=== PATIENT | female | born 1990 | race Caucasian/White ===

== ENCOUNTER 2017-12-19 02:00 | Inpatient (IN) | payer MEDICAID ==
[2017-12-19] MEDS ORDERED: Sodium Chloride 0.9% 2.5 ML Syringe FLUSH PRN (03:44)
[2017-12-19] MEDS ORDERED: Lidocaine 1% 50 ML MDV INJECT PRN (03:44)
[2017-12-19] MEDS ORDERED: Carboprost Tromethamine 250 MCG/1 ML Amp IM PRN (03:44)
[2017-12-19] MEDS ORDERED: Butorphanol 1 MG/ML SDV IVPUSH PRN (03:44)
[2017-12-19] MEDS ORDERED: Misoprostol 200 MCG Tab PO PRN (03:44)
[2017-12-19] MEDS ORDERED: Nalbuphine 10 MG/1 ML Vial IVPUSH PRN (03:44)
[2017-12-19] MEDS ORDERED: Water For Irrigation,Sterile 1,000 ML Container IRR PRN (03:44)
[2017-12-19] MEDS ORDERED: Methylergonovine 0.2 MG/1 ML Amp IM PRN (03:44)
[2017-12-19] MEDS ORDERED: Sodium Chloride 0.9% 10 ML Syringe FLUSH PRN (03:44)
[2017-12-19] MEDS ORDERED: Lactated Ringers 1,000 ML IV SCH (03:45)
[2017-12-19] MEDS ORDERED: Oxytocin/0.9 % Sodium Chloride 30 UNIT/500 ML BAG IV SCH (03:45)
[2017-12-19] MEDS ORDERED: Acetaminophen 500 MG Tab ONE (04:33)
[2017-12-19] MEDS ORDERED: Ibuprofen 800 MG Tab ONE (04:33)
[2017-12-19] MEDS: Ibuprofen 800 MG Tab PO PRN ×3 (04:40→16:43)
[2017-12-19] MEDS: Acetaminophen 500 MG Tab PO PRN ×2 (04:40→19:39)
[2017-12-19] MEDS ORDERED: Bisacodyl 10 MG Supp RECTAL PRN (04:45)
[2017-12-19] MEDS ORDERED: Ibuprofen 400 MG Tab PO PRN (04:45)
[2017-12-19] MEDS ORDERED: Docusate Sodium 100 MG Cap PO PRN (04:45)
[2017-12-19] MEDS ORDERED: Ondansetron 4 MG/2 ML SDV IVPUSH PRN (04:45)
[2017-12-19] MEDS ORDERED: Benzocaine/Menthol 20%-0.5% Spray 78 GM Cannister TOP PRN (04:45)
[2017-12-19] MEDS ORDERED: Lanolin 100% Cream 7 GM Tube TOP PRN (04:45)
[2017-12-19] MEDS ORDERED: Acetaminophen 500 MG Tab PO PRN (04:45)
[2017-12-19] MEDS ORDERED: Aluminum Hydroxide/Magnesium Hydroxide/Simethicone Susp 30 ML Cup PO PRN (04:45)
[2017-12-19] MEDS ORDERED: Witch Hazel Medicated Pads 40/Jar TOP PRN (04:45)
--- NOTE | 2017-12-19 05:34 | OR ---
SURGEON: Buffy Hill M.D. DATE OF PROCEDURE: 12/19/2017 PREOPERATIVE DIAGNOSES: 1. 39-week intrauterine . 2. Active labor. POSTOPERATIVE DIAGNOSES: 1. 39-week intrauterine . 2. Active labor. PROCEDURE: Spontaneous vaginal delivery, intact perineum. PRIMARY SURGEON: Buffy Hill M.D. ESTIMATED BLOOD LOSS: 300 mL. ANESTHESIA: None. COMPLICATIONS: None. FINDINGS: Viable male, scores 8 at 1 minute and 8 at 5 minutes, weight of 3240 g. Spontaneous delivery, intact placenta, 3-vessel cord. DISPOSITION: in nursery, mom in LDRP, stable. PROCEDURE DETAILS: Donna is a 27-year-old, -0-0-3, at 39 weeks' gestational age, who presented on the director of early childhood of 12/19/2017 with contractions approximately every 7 to 12 minutes apart. She has a history of rapid labor. With observation, she was found to be 4 cm and with re-evaluation was found to be closer to 5 cm. Therefore, she was admitted, routine labs drawn, that was at approximately 3:45. Within the next few minutes, she became increasingly uncomfortable, progressed to 8 cm dilatation and quickly thereafter to complete. heart tones were 120s with variability. She had spontaneous rupture of membranes with clear fluid. I had arrived to Labor and Delivery to admit the patient and she was feeling the urge to push, pushed to deliver 's head atraumatically, spontaneously, followed by anterior shoulder, posterior shoulder and remainder of the body. There was nuchal cord x1 that was reduced manually. The infant's oropharynx and nares were bulb suctioned. Cord was clamped x2 and cut. Infant was handed off to his mother, attending nursing staff at her side. Cord arterial, cord venous, cord blood sampling was obtained. Light suprapubic pressure was applied while the placenta was delivered spontaneously intact. Vigorous fundal uterine massage was then applied while 30 units of Pitocin was delivered in IV fluids. Upon inspection of the cervix, vaginal sidewalls, and perineum, these were found to be intact. The patient has tolerated the procedure well overall. Hemostasis remains evident. Uterus remains firm. The patient remained in LDRP and in nursery. JAMIE / CARSON /[id number]
[2017-12-19] MEDS: oxyCODONE 5 MG Tab PO PRN ×3 (11:14→20:31)
--- NOTE | 2017-12-20 07:47 | PCM.PNPP ---
- General Info Date of Service: 12/20/17 Functional Status: Reports: Pain Controlled, Tolerating Diet, Ambulating, Urinating - Review of Systems General: Denies: Fever, Fatigue, Chills HEENT: Denies: Headaches Pulmonary: Denies: Shortness of Breath, Pleuritic Chest Pain, Cough Cardiovascular: Denies: Chest Pain, Palpitations, Dyspnea on Exertion Gastrointestinal: Denies: Abdominal Pain Genitourinary: Denies: Dysuria, Incontinence, Retention Musculoskeletal: Reports: No Symptoms Skin: Reports: No Symptoms Neurological: Reports: No Symptoms Psychiatric: Reports: No Symptoms - General Info Date of Service: 12/20/17 - Patient Data Vital Signs - Most Recent: Last Vital Signs Temp 36.2 C 12/20/17 06:08 Pulse 59 L 12/20/17 06:08 Resp 16 12/20/17 06:08 BP 119/77 12/20/17 06:08 Pulse Ox 99 12/20/17 06:08 Weight - Most Recent: 150 lb Lab Results - Last 24 Hours: Laboratory Results - last 24 hr 12/19/17 12/19/17 12/20/17 Range/Units 04:16 04:19 04:44 Hgb 11.9 L (12.0-16.0) g/dL Hct 34.6 L (36.0-46.0) % Cord ABG pH 7.331 Cancelled (7.18-7.38) Cord ABG Base Excess -3 Cancelled (-10--2) Cord VBG pH 7.475 H (7.25-7.45) Cord VBG Base Excess -4 (-10--2) Med Orders - Current: Current Medications Acetaminophen (Tylenol Extra Strength) 500 mg PO Q4H PRN PRN Reason: Pain Acetaminophen (Tylenol Extra Strength) 1,000 mg PO Q4H PRN PRN Reason: Pain Last Admin: 12/19/17 19:39 Dose: 1,000 mg Al Hydroxide/Mg Hydroxide (Mag-Al Plus) 30 ml PO Q8H PRN PRN Reason: Heartburn Benzocaine/Menthol (Dermoplast Pain Relief 20%-0.5% Markle) 78 gm TOP ASDIRECTED PRN PRN Reason: Perineal Comfort Measure Last Admin: 12/19/17 11:14 Dose: 1 canister Bisacodyl (Dulcolax) 10 mg RECTAL .ONCE PRN PRN Reason: Constipation Butorphanol Tartrate (Stadol) 1 mg IVPUSH Q1H PRN PRN Reason: Pain Last Admin: 12/19/17 04:52 Dose: 1 mg Carboprost Tromethamine (Hemabate Ds) 250 mcg IM ASDIRECTED PRN PRN Reason: Post Hemorrhage Docusate Sodium (Colace) 100 mg PO BID PRN PRN Reason: Constipation Emollient Ointment (Lansinoh Hpa) 0 gm TOP ASDIRECTED PRN PRN Reason: Sore Nipples Lactated Ringer's (Ringers, Lactated) 1,000 mls @ 150 mls/hr IV ASDIRECTED WINTER Oxytocin/Sodium Chloride (Oxytocin 30 Unit/500 Ml-Ns) 30 unit in 500 mls @ 250 mls/hr IV TITRATE [facility] Last Admin: 12/19/17 04:20 Dose: 500 mls/hr Ibuprofen (Motrin) 400 mg PO Q4H PRN PRN Reason: Pain Ibuprofen (Motrin) 800 mg PO Q6H PRN PRN Reason: Pain Last Admin: 12/19/17 16:43 Dose: 800 mg Lidocaine HCl (Xylocaine 1%) 50 ml INJECT .ONCE PRN PRN Reason: Laceration repair Methylergonovine Maleate (Methergine) 0.2 mg IM ASDIRECTED PRN PRN Reason: Post Hemorrhage Misoprostol (Cytotec) 200 mcg PO .ONCE PRN PRN Reason: Post Hemorrhage Ondansetron HCl (Zofran) 4 mg IVPUSH Q6H PRN PRN Reason: Nausea/Vomiting Oxycodone HCl (Oxycodone) 5 mg PO Q2H PRN PRN Reason: Pain Last Admin: 12/19/17 20:31 Dose: 5 mg Sodium Chloride (Saline Flush) 10 ml FLUSH ASDIRECTED PRN PRN Reason: Keep Vein Open Sodium Chloride (Saline Flush) 2.5 ml FLUSH ASDIRECTED PRN PRN Reason: Keep Vein Open Witch Cathie (Tucks) 1 pad TOP ASDIRECTED PRN PRN Reason: comfort care Discontinued Medications Acetaminophen (Tylenol Extra Strength) Confirm Administered Dose 1,000 mg .ROUTE .[facility]-MED ONE Stop: 01/23/18 04:34 Last Admin: 12/19/17 09:20 Dose: Not Given Ibuprofen (Motrin) Confirm Administered Dose 800 mg .ROUTE .STK-MED ONE Stop: 12/19/17 04:34 Last Admin: 12/19/17 09:19 Dose: Not Given Nalbuphine HCl (Nubain) 10 mg IVPUSH Q1H PRN PRN Reason: Pain (severe 7-10) Sterile Water (Sterile Water For Irrigation) 1,000 ml IRR ASDIRECTED PRN PRN Reason: delivery Last Admin: 12/19/17 04:59 Dose: 1,000 ml - Interaction Disposition, : in Room with Family Infant Feeding: Breastfed Infant; Nursed Well Support Person: Significant Other - Recovery Exam Fundal Tone: Firm Fundal Level: 1 Fingerbreadths Below Umbilicus Fundal Placement: Midline Lochia Amount: Scant Lochia Color: Rubra/Red Perineum Description: Intact, Minimal Bruising/Swelling Episiotomy/Laceration: None Bladder Status: Voiding Urinary Elimination: Voided - Exam General: Alert, Oriented HEENT: Pupils Equal Lungs: Clear to Auscultation, Normal Respiratory Effort Cardiovascular: Regular Rate, Regular Rhythm Extremities: Normal Inspection, No Pedal Edema Skin: Warm Psy/Mental Status: Alert, Normal Affect, Normal Mood - Problem List & Annotations (1) Vaginal delivery SNOMED Code(s): 712675526 Code(s): O80 - ENCOUNTER FOR FULL-TERM UNCOMPLICATED DELIVERY Status: Acute Current Visit: No - Problem List Review Problem List Initiated/Reviewed/Updated: Yes - Assessment Assessment:: PPD#1 s/p , stable and afebrile Clinically stable for discharge today - Plan Plan:: Discharge instructions given Nothing in the vagina for 6 weeks Continue PNV May use OTC pain medications PRN Bleeding and infection precautions reviewed S/S of blues/depression reviewed Follow up in 6 weeks at [facility]
[2017-12-20] MEDS: oxyCODONE 5 MG Tab PO PRN (09:11)
[2017-12-20] MEDS: Ibuprofen 800 MG Tab PO PRN (09:12)
[2017-12-20 13:28] VITALS: BP 117/64
== END 2017-12-20 12:25 | disposition home or self-care (01) | DRG 775 ==
LOC: MW.OBCHECK 02:00 → MW.OB 02:03 → MW.OBCHECK 03:44 → OBSVTOIN 04:16 → MW.OB 07:00
PROVIDERS: ADMIT Obstetrics & Gynecology; ATTEND Obstetrics & Gynecology
PROC: 10E0XZZ Delivery of Products of Conception, External Approach (ICD-10-PCS; principal; 2017-12-19)
DX: O69.1XX0 Labor and delivery complicated by cord around neck, with compression, not applicable or unspecified (principal); Z3A.39 39 weeks gestation of pregnancy; Z37.0 Single live birth
CPT/HCPCS: 36415; 59025; 59409; 82803; 85014; 85018; 85027; 86850; 86900; 86901; A9270-GY; J0595; J2590

== ENCOUNTER 2021-07-05 07:43 | Inpatient (IN) | payer BC ==
[2021-07-05] MEDS ORDERED: Sodium Chloride 0.9% 10 ML SDV IV PRN (07:53)
[2021-07-05] MEDS ORDERED: Sodium Chloride 0.9% 2.5 ML Syringe FLUSH PRN (07:53)
[2021-07-05] MEDS ORDERED: Sodium Chloride 0.9% 10 ML Syringe FLUSH PRN (07:53)
[2021-07-05] MEDS ORDERED: Citric Acid/Sodium Citrate Solution 30 ML Cup PO ONE (08:00)
[2021-07-05] MEDS ORDERED: ceFAZolin 2 GM in Premix Bag 1 BAG IV SCH (08:00)
[2021-07-05] MEDS ORDERED: Oxytocin/0.9 % Sodium Chloride 30 UNIT/500 ML BAG IV SCH (08:00)
[2021-07-05] MEDS: Lactated Ringers 1,000 ML IV SCH ×2 (08:40→10:25)
[2021-07-05] MEDS ORDERED: fentaNYL 100 MCG/2 ML SDV ONE (10:28)
[2021-07-05] MEDS ORDERED: Morphine PF 10 MG/10 ML SDV ONE (10:28)
[2021-07-05] MEDS ORDERED: Oxytocin 10 Units/1 ML SDV ONE (11:08)
[2021-07-05] MEDS ORDERED: ceFAZolin 1 GM Vial ONE (11:08)
[2021-07-05] MEDS ORDERED: Ondansetron 4 MG/2 ML SDV ONE (11:08)
[2021-07-05] MEDS ORDERED: Ketorolac 30 MG/ML SDV ONE (11:08)
--- NOTE | 2021-07-05 12:05 | PCM.OPNOTE ---
<Malissa Beckwith - Last Filed: 07/05/21 12:00> - General Post-Op/Procedure Note Date of Surgery/Procedure: 07/05/21 Operative Procedure(s): Primary low transverse section for breech presentation Findings: Live male, apgars 5 and 8, weighing 3680g at 1104am Delivery intact placenta with 3v cord Clear amniotic fluid Normal appearing uterus, ovaries, and tubes Pre Op Diagnosis: 39wk IUP, Breech presentation Post-Op Diagnosis: Same Anesthesia Technique: Spinal Primary Surgeon: Ernie Sheikh Anesthesia Provider: Jose Iyer Plant Sprayer: Malissa Beckwith Fluid Replacement, Intraop: 1,000 Output, Urine Amount: 100 EBL in mLs: 700 Complications: None Condition: Stable <Ernie Sheikh - Last Filed: 07/06/21 10:07> - General Post-Op/Procedure Note Pre Op Diagnosis: 31 yo @ 39w0d. Breech Presentation. RH negative Free Text/Narrative:: Intake & Output 07/05/21 07/06/21 07/06/21 22:59 06:59 14:59 Intake Total 3524 Output Total [phone] [facility] [phone]
[2021-07-05] MEDS ORDERED: Lanolin 100% Cream 7 GM Tube TOP PRN (12:17)
[2021-07-05] MEDS ORDERED: Ondansetron 4 MG/2 ML SDV IVPUSH PRN (12:17)
[2021-07-05] MEDS ORDERED: diphenhydrAMINE 50 MG/ML SDV IVPUSH PRN (12:17)
[2021-07-05] MEDS ORDERED: Methylergonovine 0.2 MG/1 ML Amp IM PRN (12:17)
[2021-07-05] MEDS ORDERED: Misoprostol 200 MCG Tab RECTAL PRN (12:17)
[2021-07-05] MEDS ORDERED: Bisacodyl 10 MG Supp RECTAL PRN (12:17)
[2021-07-05] MEDS ORDERED: Tranexamic Acid 1,000 MG in Sodium Chloride 0.9% 100 ML IV PRN (12:17)
[2021-07-05] MEDS ORDERED: Oxytocin 10 Units/1 ML SDV IM PRN (12:17)
[2021-07-05] MEDS ORDERED: Oxytocin/Lactated Ringers 30 UNIT/500 ML BAG IV SCH (12:30)
[2021-07-05] MEDS ORDERED: Lactated Ringers 1,000 ML IV SCH (12:30)
[2021-07-05] MEDS: Ketorolac 30 MG/ML SDV IVPUSH SCH ×3 (13:08→23:06)
[2021-07-05] MEDS: Docusate Sodium 100 MG Cap PO SCH (20:57)
[2021-07-06] MEDS: Ketorolac 30 MG/ML SDV IVPUSH SCH ×4 (00:17→12:06)
--- NOTE | 2021-07-06 07:46 | OR ---
SURGEON: MARCEL GONZALEZ DATE OF PROCEDURE: 07/05/2021 PREOPERATIVE DIAGNOSIS: A 31-year-old G5, P 4-0-0-4 at 39 weeks 0 days for primary section secondary to breech presentation. POSTOPERATIVE DIAGNOSIS: A 31-year-old G5, P 4-0-0-4 at 39 weeks 0 days for primary section secondary to breech presentation. PROCEDURE: Primary lower segment transverse section. ESTIMATED BLOOD LOSS: 700. IV FLUID: 1000. URINE OUTPUT: 100. ANESTHESIA: Spinal. NOTES AND FINDING: A live male delivered at 1104am. score was 5 and 8. Weight is 3580 g. COMPLICATION: None. BRIEF HISTORY: The patient is 31, G5, P 4-0-0-4, at 39 weeks 0 days, who had low-risk care, was in breech presentation at 38-week appointment. She was given option of external cephalic version versus primary section. She wanted to go with the option of primary section. She was explained the risks, benefits, and alternatives and she decided to proceed. DESCRIPTION OF PROCEDURE: The patient was taken to the operating room where spinal anesthesia was performed without difficulty. She was prepared and draped in the dorsal supine position with a leftward tilt. A Pfannenstiel skin incision was made with a scalpel and carried down to the fascia with the Bovie. The fascia was incised and extended upwards and laterally. The fascia was from the rectus muscle superiorly and inferiorly. The rectus muscle was in the midline down to the level of the pubic symphysis. The peritoneum was entered in bluntly and extended bluntly. The lower uterine segment was noted. The bladder flap was created with the aid of the Metzenbaum scissors. The lower intrauterine incision was then made and extended upwards and outwards manually. The buttocks were noted to be presenting in the lower uterine incision and was then delivered all the way to the shoulders. The anterior shoulder was delivered with the hand. Then, the was rotated 180 degrees, and the posterior hand was also delivered. The head was then delivered with some fundal pressure. The cord was clamped and cut. The infant was handed over to the awaiting satellite project site monitor and pediatric team. The angles of the uterus were then clamped. Cord blood gases were obtained. The placenta was delivered by manual massage of the uterine fundus. The uterus was then cleansed and all membranes were removed with the laparotomy sponge. The uterus was then closed in three layers because of the bulkiness of the uterus. The first layer was with 2-0 Vicryl, second layer was with 0 Vicryl. The layer was imbricated with 0 Monocryl. The incision was inspected and noted to be hemostatic. The Torsten was removed and the bladder blade was then placed in. The incision was one time again inspected and noted to be hemostatic. The peritoneum was then closed with 2-0 Vicryl. The bleeders noted were controlled with Bovie. The midline rectus muscle was approximated , was closed with a mattress suture, and then the fascia was closed with 0 Vicryl. The skin was closed with 3-0 Monocryl on a Ubaldo needle. All instrument and pad counts were correct x2. OLENA / CARSON /[id number]
--- NOTE | 2021-07-06 07:53 | PCM.PNPP ---
<AniMalissa su - Last Filed: 07/06/21 08:19> - General Info Date of Service: 07/06/21 Admission Dx/Problem (Free Text): Primary low transverse section for breech presentation Subjective Update: Pt doing well. Pain controlled. Ambulating okay. No BMs, but taking stool softener. Urinating okay. Functional Status: Reports: Pain Controlled - Review of Systems Pulmonary: Reports: No Symptoms Cardiovascular: Reports: No Symptoms Gastrointestinal: Reports: No Symptoms Genitourinary: Reports: No Symptoms - General Info Date of Service: 07/06/21 - Patient Data Vital Signs - Most Recent: Last Vital Signs Temp 97.1 F 07/06/21 03:53 Pulse 77 07/06/21 07:00 Resp 17 07/06/21 07:00 BP 126/75 07/06/21 03:53 Pulse Ox 97 07/06/21 07:00 Weight - Most Recent: 63.9 kg I&O - Last 24 Hours: Intake & Output 07/05/21 07/06/21 07/06/21 22:59 06:59 14:59 Intake Total 3524 Output Total 225 6365 Balance -652 -373 Lab Results - Last 24 Hours: Laboratory Results - last 24 hr 07/05/21 07/05/21 07/05/21 Range/Units 07:46 08:40 08:40 WBC 8.83 (4.0-11.0) K/uL RBC 3.64 L (4.30-5.90) M/uL Hgb 10.3 L (12.0-16.0) g/dL Hct 30.4 L (36.0-46.0) % MCV 83.5 (80.0-98.0) fL MCH 28.3 (27.0-32.0) pg MCHC 33.9 (31.0-37.0) g/dL RDW Std Deviation 42.4 (28.0-62.0) fl RDW Coeff of Jeff 14 (11.0-15.0) % Plt Count 295 (150-400) K/uL MPV 10.30 (7.40-12.00) fL Nucleated RBC % 0.0 /100WBC Nucleated RBCs # 0 K/uL SARS-CoV-2 RNA (JAMES) NEGATIVE (NEGATIVE) Blood Type B NEGATIVE Antibody Screen NEGATIVE 07/06/21 Range/Units 05:27 WBC (4.0-11.0) K/uL RBC (4.30-5.90) M/uL Hgb 9.2 L (12.0-16.0) g/dL Hct 27.9 L (36.0-46.0) % MCV (80.0-98.0) fL MCH (27.0-32.0) pg MCHC (31.0-37.0) g/dL RDW Std Deviation (28.0-62.0) fl RDW Coeff of Jeff (11.0-15.0) % Plt Count (150-400) K/uL MPV (7.40-12.00) fL Nucleated RBC % /100WBC Nucleated RBCs # K/uL SARS-CoV-2 RNA (JAMES) (NEGATIVE) Blood Type Antibody Screen Med Orders - Current: Current Medications Bisacodyl (Bisacodyl 10 Mg Supp) 10 mg RECTAL ONETIME PRN PRN Reason: Constipation Diphenhydramine HCl (Diphenhydramine 50 Mg/Ml Sdv) 25 mg IVPUSH Q6H PRN PRN Reason: Itching or Nausea Docusate Sodium (Docusate Sodium 100 Mg Cap) 100 mg PO BID [facility] Last Admin: 07/05/21 20:57 Dose: 100 mg Documented by: Emollient Ointment (Lanolin 100% Cream 7 Gm Tube) 0 gm TOP ASDIRECTED PRN PRN Reason: Sore Nipples Oxytocin/Sodium Chloride (Oxytocin 30 Unit/500 Ml-Ns) 30 unit in 500 mls @ 250 mls/hr IV TITRATE [facility] Cefazolin Sodium/Dextrose 2 gm (/ Premix) 50 mls @ 100 mls/hr IV .ONCE [facility] Last Admin: 07/05/21 13:29 Dose: Not Given Documented by: Lactated Ringer's (Ringers, Lactated) 1,000 mls @ 500 mls/hr IV BOLUS [facility] Last Admin: 07/05/21 10:25 Dose: 500 mls/hr Documented by: Lactated Ringer's (Ringers, Lactated) 1,000 mls @ 125 mls/hr IV ASDIRECTED [facility] Last Admin: 07/05/21 16:18 Dose: 125 mls/hr Documented by: Oxytocin/Lactated Ringer's (Pitocin In Lr 30 Units/500 Ml) 30 unit in 500 mls @ 2 mls/hr IV TITRATE [facility]; Protocol Tranexamic Acid 1,000 mg/ (Sodium Chloride) 110 mls @ 660 mls/hr IV ONETIME PRN PRN Reason: Bleeding Ibuprofen (Ibuprofen 800 Mg Tab) 800 mg PO Q8H PRN PRN Reason: mild pain or fever Ketorolac Tromethamine (Ketorolac 30 Mg/Ml Sdv) 30 mg IVPUSH Q6H [place] Stop: 07/06/21 12:31 Last Admin: 07/06/21 07:18 Dose: Not Given Documented by: Methylergonovine Maleate (Methylergonovine 0.2 Mg/1 Ml Amp) 0.2 mg IM ONETIME PRN PRN Reason: Excessive Vaginal Bleeding Misoprostol (Misoprostol 200 Mcg Tab) 1,000 mcg RECTAL ONETIME PRN PRN Reason: excessive bleeding Ondansetron HCl (Ondansetron 4 Mg/2 Ml Sdv) 4 mg IVPUSH Q4H PRN PRN Reason: Nausea/Vomiting Oxycodone/Acetaminophen (Acetaminophen/Oxycodone 325-5 Mg Tab) 1 tab PO Q4H PRN PRN Reason: Pain (severe 7-10) Oxycodone/Acetaminophen (Acetaminophen/Oxycodone 325-5 Mg Tab) 2 tab PO Q4H PRN PRN Reason: Pain (severe 7-10) Oxytocin (Oxytocin 10 Units/1 Ml Sdv) 10 unit IM ASDIRECTED PRN PRN Reason: Excessive Vaginal Bleeding Sodium Chloride (Sodium Chloride 0.9% 10 Ml Syringe) 10 ml FLUSH ASDIRECTED PRN PRN Reason: Keep Vein Open Sodium Chloride (Sodium Chloride 0.9% 2.5 Ml Syringe) 2.5 ml FLUSH ASDIRECTED PRN PRN Reason: Keep Vein Open Sodium Chloride (Sodium Chloride 0.9% 10 Ml Sdv) 10 ml IV ASDIRECTED PRN PRN Reason: IV Use Discontinued Medications Cefazolin Sodium (Cefazolin 1 Gm Vial) Confirm Administered Dose 2 gm .ROUTE .STK-MED ONE Stop: 07/05/21 11:09 Citric Acid/Sodium Citrate (Citric Acid/Sodium Citrate Solution 30 Ml Cup) 30 ml PO ONETIME ONE Stop: 07/05/21 08:01 Last Admin: 07/05/21 20:43 Dose: Not Given Documented by: Fentanyl (Fentanyl 100 Mcg/2 Ml Sdv) Confirm Administered Dose 100 mcg .ROUTE .STK-MED ONE Stop: 07/05/21 10:29 Ketorolac Tromethamine (Ketorolac 30 Mg/Ml Sdv) Confirm Administered Dose 30 mg .ROUTE .STK-MED ONE Stop: 07/05/21 11:09 Miscellaneous Medication (Phenylephrine Hcl In 0.9% Nacl 1 Mg/10 Ml Syringe) Confirm Administered Dose 1 mg .ROUTE .STK-MED ONE Stop: 07/05/21 11:09 Morphine Sulfate (Morphine Pf 10 Mg/10 Ml Sdv) Confirm Administered Dose 10 mg .ROUTE .STK-MED ONE Stop: 07/05/21 10:29 Ondansetron HCl (Ondansetron 4 Mg/2 Ml Sdv) Confirm Administered Dose 4 mg .ROUTE .STK-MED ONE Stop: 07/05/21 11:09 Oxytocin (Oxytocin 10 Units/1 Ml Sdv) Confirm Administered Dose 30 unit .ROUTE .STK-MED ONE Stop: 07/05/21 11:09 - Interaction Disposition, : [place] in Room with Family Infant Feeding: Bottle Fed Infant Support Person: Significant Other - Recovery Exam Fundal Tone: Firm Fundal Level: 1 Fingerbreadths Below Umbilicus Fundal Placement: Midline Lochia Amount: Small Lochia Color: Rubra/Red Perineum Description: Intact, Minimal Bruising/Swelling Episiotomy/Laceration: None Bladder Status: Voiding Urinary Elimination: Voided - Exam General: Alert, Oriented Lungs: Clear to Auscultation, Normal Respiratory Effort Cardiovascular: Regular Rate, Regular Rhythm GI/Abdominal Exam: Soft (Appropriately tender) Skin: Warm, Dry, Intact Wound/Incisions: Healing Well - Problem List Review Problem List Initiated/Reviewed/Updated: Yes - Assessment Assessment:: Pt is a 31 yo G5 now P5 female at 39w0d s/p scheduled primary low transverse section for breech presentation. Pt healing well. - Plan Plan:: Pt Rh- and Rh-, Rhogam not given Antibody screen negative, Rubella immune, GBS negative PO pain medication ordered PRN Regular diet as tolerated Encourage ambulation Bottle feeding Hbg 9.2/Hct 27.9 this morning Dispo: plan for discharge tomorrow <Ernie Sheikh - Last Filed: 07/06/21 10:06> - General Info Subjective Update: Patient is doing well, Pain is well controlled , ambulating , bottle feeding , Normal lochia Chapman out , Patient voided X 2 Functional Status: Reports: Tolerating Diet, Ambulating, Urinating - Review of Systems Skin: Reports: No Symptoms Neurological: Reports: No Symptoms Psychiatric: Reports: No Symptoms - Patient Data Vital Signs - Most Recent: Last Vital Signs Temp 36.4 C 07/06/21 09:00 Pulse 73 07/06/21 09:00 Resp 16 07/06/21 09:00 BP 121/64 07/06/21 09:00 Pulse Ox 97 07/06/21 09:00 I&O - Last 24 Hours: Intake & Output 07/05/21 07/06/21 07/06/21 22:59 06:59 14:59 Intake Total 3524 Output Total 840 6755 Balance -127 -846 Lab Results - Last 24 Hours: Laboratory Results - last 24 hr 07/06/21 Range/Units 05:27 Hgb 9.2 L (12.0-16.0) g/dL Hct 27.9 L (36.0-46.0) % Med Orders - Current: Current Medications Bisacodyl (Bisacodyl 10 Mg Supp) 10 mg RECTAL ONETIME PRN PRN Reason: Constipation Diphenhydramine HCl (Diphenhydramine 50 Mg/Ml Sdv) 25 mg IVPUSH Q6H PRN PRN Reason: Itching or Nausea Docusate Sodium (Docusate Sodium 100 Mg Cap) 100 mg PO BID [facility] Last Admin: 07/06/21 09:00 Dose: 100 mg Documented by: Emollient Ointment (Lanolin 100% Cream 7 Gm Tube) 0 gm TOP ASDIRECTED PRN PRN Reason: Sore Nipples Oxytocin/Sodium Chloride (Oxytocin 30 Unit/500 Ml-Ns) 30 unit in 500 mls @ 250 mls/hr IV TITRATE [facility] Cefazolin Sodium/Dextrose 2 gm (/ Premix) 50 mls @ 100 mls/hr IV .ONCE [facility] Last Admin: 07/05/21 13:29 Dose: Not Given Documented by: Lactated Ringer's (Ringers, Lactated) 1,000 mls @ 500 mls/hr IV BOLUS [facility] Last Admin: 07/05/21 10:25 Dose: 500 mls/hr Documented by: Lactated Ringer's (Ringers, Lactated) 1,000 mls @ 125 mls/hr IV ASDIRECTED [facility] Last Admin: 07/05/21 16:18 Dose: 125 mls/hr Documented by: Oxytocin/Lactated Ringer's (Pitocin In Lr 30 Units/500 Ml) 30 unit in 500 mls @ 2 mls/hr IV TITRATE [facility]; Protocol Tranexamic Acid 1,000 mg/ (Sodium Chloride) 110 mls @ 660 mls/hr IV ONETIME PRN PRN Reason: Bleeding Ibuprofen (Ibuprofen 800 Mg Tab) 800 mg PO Q8H PRN PRN Reason: mild pain or fever Ketorolac Tromethamine (Ketorolac 30 Mg/Ml Sdv) 30 mg IVPUSH Q6H [facility] Stop: 07/06/21 12:31 Last Admin: 07/06/21 07:18 Dose: Not Given Documented by: Methylergonovine Maleate (Methylergonovine 0.2 Mg/1 Ml Amp) 0.2 mg IM ONETIME PRN PRN Reason: Excessive Vaginal Bleeding Misoprostol (Misoprostol 200 Mcg Tab) 1,000 mcg RECTAL ONETIME PRN PRN Reason: excessive bleeding Ondansetron HCl (Ondansetron 4 Mg/2 Ml Sdv) 4 mg IVPUSH Q4H PRN PRN Reason: Nausea/Vomiting Oxycodone/Acetaminophen (Acetaminophen/Oxycodone 325-5 Mg Tab) 1 tab PO Q4H PRN PRN Reason: Pain (severe 7-10) Oxycodone/Acetaminophen (Acetaminophen/Oxycodone 325-5 Mg Tab) 2 tab PO Q4H PRN PRN Reason: Pain (severe 7-10) Oxytocin (Oxytocin 10 Units/1 Ml Sdv) 10 unit IM ASDIRECTED PRN PRN Reason: Excessive Vaginal Bleeding Sodium Chloride (Sodium Chloride 0.9% 10 Ml Syringe) 10 ml FLUSH ASDIRECTED PRN PRN Reason: Keep Vein Open Sodium Chloride (Sodium Chloride 0.9% 2.5 Ml Syringe) 2.5 ml FLUSH ASDIRECTED PRN PRN Reason: Keep Vein Open Sodium Chloride (Sodium Chloride 0.9% 10 Ml Sdv) 10 ml IV ASDIRECTED PRN PRN Reason: IV Use Discontinued Medications Cefazolin Sodium (Cefazolin 1 Gm Vial) Confirm Administered Dose 2 gm .ROUTE .STK-MED ONE Stop: 07/05/21 11:09 Citric Acid/Sodium Citrate (Citric Acid/Sodium Citrate Solution 30 Ml Cup) 30 ml PO ONETIME ONE Stop: 07/05/21 08:01 Last Admin: 07/05/21 20:43 Dose: Not Given Documented by: Fentanyl (Fentanyl 100 Mcg/2 Ml Sdv) Confirm Administered Dose 100 mcg .ROUTE .STK-MED ONE Stop: 07/05/21 10:29 Ketorolac Tromethamine (Ketorolac 30 Mg/Ml Sdv) Confirm Administered Dose 30 mg .ROUTE .STK-MED ONE Stop: 07/05/21 11:09 Miscellaneous Medication (Phenylephrine Hcl In 0.9% Nacl 1 Mg/10 Ml Syringe) Confirm Administered Dose 1 mg .ROUTE .STK-MED ONE Stop: 07/05/21 11:09 Morphine Sulfate (Morphine Pf 10 Mg/10 Ml Sdv) Confirm Administered Dose 10 mg .ROUTE .STK-MED ONE Stop: 07/05/21 10:29 Ondansetron HCl (Ondansetron 4 Mg/2 Ml Sdv) Confirm Administered Dose 4 mg .ROUTE .STK-MED ONE Stop: 07/05/21 11:09 Oxytocin (Oxytocin 10 Units/1 Ml Sdv) Confirm Administered Dose 30 unit .ROUTE .STK-MED ONE Stop: 07/05/21 11:09 - Exam Neurological: No New Focal Deficit Psy/Mental Status: Alert - Problem List & Annotations (1) delivery delivered SNOMED Code(s): 555442813 Code(s): O82 - ENCOUNTER FOR DELIVERY WITHOUT INDICATION Status: Acute Current Visit: Yes - Problem List Review Problem List Initiated/Reviewed/Updated: Yes - My Orders Last 24 Hours: My Active Orders 07/05/21 Lunch Regular Diet [DIET] 07/05/21 12:17 Patient Status [ADT] Routine Ambulate [RC] PER UNIT ROUTINE Communication Order [RC] PER UNIT ROUTINE Communication Order [RC] PER UNIT ROUTINE Communication Order [RC] Per Unit Routine May Shower [RC] ASDIRECTED Notify Provider Intake and Out [RC] ASDIRECTED Notify Provider Vital Signs [RC] ASDIRECTED RT Incentive Spirometry [RC] Q2HWA Vital Signs [RC] PER UNIT ROUTINE Acetaminophen/oxyCODONE [Percocet 325-5 MG] 1 tab PO Q4H PRN Acetaminophen/oxyCODONE [Percocet 325-5 MG] 2 tab PO Q4H PRN Ibuprofen [Motrin] 800 mg PO Q8H PRN Lanolin [Lansinoh HPA] See Dose Instructions TOP ASDIRECTED PRN Methylergonovine [Methergine] 0.2 mg IM ONETIME PRN Ondansetron [Zofran] 4 mg IVPUSH Q4H PRN Oxytocin [Pitocin] 10 unit IM ASDIRECTED PRN Tranexamic Acid [Cyklokapron] 1,000 mg Sodium Chloride 0.9% [Normal Saline] 100 ml IV ONETIME bisacodyL [Dulcolax] 10 mg RECTAL ONETIME PRN diphenhydrAMINE [Benadryl] 25 mg IVPUSH Q6H PRN miSOPROStoL [Cytotec] 1,000 mcg RECTAL ONETIME PRN Assess Lochia [WOMSER] Per Unit Routine Assess Uterine Involution [WOMSER] Per Unit Routine Breast Pump [WOMSER] Per Unit Routine Peripheral IV Discontinue [OM.PC] Routine Sequential Compression Device [OM.PC] Per Unit Routine Resuscitation Status Routine 07/05/21 12:18 Antiembolic Devices [RC] PER UNIT ROUTINE 07/05/21 12:30 Ketorolac [Toradol] 30 mg IVPUSH Q6H Lactated Ringers [Ringers, Lactated] 1,000 ml IV ASDIRECTED Oxytocin/Lactated Ringers [Pitocin in LR 30 Units/500 ML] 30 unit in 500 ml IV TITRATE 07/05/21 21:00 Docusate Sodium [Colace] 100 mg PO BID - Assessment Assessment:: 31yo P5 s/p Primary POD1 , Bottlefeeding - Plan Plan:: Agree with plan
[2021-07-06] MEDS: Docusate Sodium 100 MG Cap PO SCH ×2 (09:00→20:02)
[2021-07-06] MEDS: Acetaminophen/oxyCODONE 325-5 MG Tab PO PRN ×3 (16:17→23:34)
[2021-07-06] MEDS: Ibuprofen 800 MG Tab PO PRN (18:07)
[2021-07-07] MEDS: Acetaminophen/oxyCODONE 325-5 MG Tab PO PRN ×3 (03:55→13:11)
[2021-07-07] MEDS: Ibuprofen 800 MG Tab PO PRN ×2 (03:55→12:12)
[2021-07-07 04:25] VITALS: PULSE 65
--- NOTE | 2021-07-07 07:26 | PCM.PNPP ---
<AniMalissa su - Last Filed: 07/07/21 07:21> - General Info Date of Service: 07/07/21 Admission Dx/Problem (Free Text): Primary low transverse section for breech presentation Subjective Update: Patient is doing well. Pain well controlled. Bottlefeeding. Urinating okay. Ambulating okay Functional Status: Reports: Pain Controlled - Review of Systems General: Reports: No Symptoms Pulmonary: Reports: No Symptoms Cardiovascular: Reports: No Symptoms Gastrointestinal: Reports: No Symptoms Genitourinary: Reports: No Symptoms - General Info Date of Service: 07/07/21 - Patient Data Vital Signs - Most Recent: Last Vital Signs Temp 97.7 F 07/07/21 04:00 Pulse 65 07/07/21 04:00 Resp 18 07/07/21 04:00 BP 113/90 07/07/21 04:00 Pulse Ox 100 07/07/21 04:00 Weight - Most Recent: 63.9 kg Med Orders - Current: Current Medications Bisacodyl (Bisacodyl 10 Mg Supp) 10 mg RECTAL ONETIME PRN PRN Reason: Constipation Diphenhydramine HCl (Diphenhydramine 50 Mg/Ml Sdv) 25 mg IVPUSH Q6H PRN PRN Reason: Itching or Nausea Docusate Sodium (Docusate Sodium 100 Mg Cap) 100 mg PO BID [facility] Last Admin: 07/06/21 20:02 Dose: 100 mg Documented by: Emollient Ointment (Lanolin 100% Cream 7 Gm Tube) 0 gm TOP ASDIRECTED PRN PRN Reason: Sore Nipples Oxytocin/Sodium Chloride (Oxytocin 30 Unit/500 Ml-Ns) 30 unit in 500 mls @ 250 mls/hr IV TITRATE [facility] Cefazolin Sodium/Dextrose 2 gm (/ Premix) 50 mls @ 100 mls/hr IV .ONCE [facility] Last Admin: 07/05/21 13:29 Dose: Not Given Documented by: Lactated Ringer's (Ringers, Lactated) 1,000 mls @ 500 mls/hr IV BOLUS [facility] Last Admin: 07/05/21 10:25 Dose: 500 mls/hr Documented by: Lactated Ringer's (Ringers, Lactated) 1,000 mls @ 125 mls/hr IV ASDIRECTED [facility] Last Admin: 07/05/21 16:18 Dose: 125 mls/hr Documented by: Oxytocin/Lactated Ringer's (Pitocin In Lr 30 Units/500 Ml) 30 unit in 500 mls @ 2 mls/hr IV TITRATE [facility]; Protocol Tranexamic Acid 1,000 mg/ (Sodium Chloride) 110 mls @ 660 mls/hr IV ONETIME PRN PRN Reason: Bleeding Ibuprofen (Ibuprofen 800 Mg Tab) 800 mg PO Q8H PRN PRN Reason: mild pain or fever Last Admin: 07/07/21 03:55 Dose: 800 mg Documented by: Methylergonovine Maleate (Methylergonovine 0.2 Mg/1 Ml Amp) 0.2 mg IM ONETIME PRN PRN Reason: Excessive Vaginal Bleeding Misoprostol (Misoprostol 200 Mcg Tab) 1,000 mcg RECTAL ONETIME PRN PRN Reason: excessive bleeding Ondansetron HCl (Ondansetron 4 Mg/2 Ml Sdv) 4 mg IVPUSH Q4H PRN PRN Reason: Nausea/Vomiting Oxycodone/Acetaminophen (Acetaminophen/Oxycodone 325-5 Mg Tab) 1 tab PO Q4H PRN PRN Reason: Pain (severe 7-10) Last Admin: 07/07/21 03:55 Dose: 1 tab Documented by: Oxycodone/Acetaminophen (Acetaminophen/Oxycodone 325-5 Mg Tab) 2 tab PO Q4H PRN PRN Reason: Pain (severe 7-10) Last Admin: 07/06/21 23:34 Dose: 2 tab Documented by: Oxytocin (Oxytocin 10 Units/1 Ml Sdv) 10 unit IM ASDIRECTED PRN PRN Reason: Excessive Vaginal Bleeding Sodium Chloride (Sodium Chloride 0.9% 10 Ml Syringe) 10 ml FLUSH ASDIRECTED PRN PRN Reason: Keep Vein Open Sodium Chloride (Sodium Chloride 0.9% 2.5 Ml Syringe) 2.5 ml FLUSH ASDIRECTED PRN PRN Reason: Keep Vein Open Sodium Chloride (Sodium Chloride 0.9% 10 Ml Sdv) 10 ml IV ASDIRECTED PRN PRN Reason: IV Use Discontinued Medications Cefazolin Sodium (Cefazolin 1 Gm Vial) Confirm Administered Dose 2 gm .ROUTE .STK-MED ONE Stop: 07/05/21 11:09 Citric Acid/Sodium Citrate (Citric Acid/Sodium Citrate Solution 30 Ml Cup) 30 ml PO ONETIME ONE Stop: 07/05/21 08:01 Last Admin: 07/05/21 20:43 Dose: Not Given Documented by: Fentanyl (Fentanyl 100 Mcg/2 Ml Sdv) Confirm Administered Dose 100 mcg .ROUTE .STK-MED ONE Stop: 07/05/21 10:29 Ketorolac Tromethamine (Ketorolac 30 Mg/Ml Sdv) Confirm Administered Dose 30 mg .ROUTE .STK-MED ONE Stop: 07/05/21 11:09 Ketorolac Tromethamine (Ketorolac 30 Mg/Ml Sdv) 30 mg IVPUSH Q6H [facility] Stop: 07/06/21 12:31 Last Admin: 07/06/21 12:06 Dose: 30 mg Documented by: Miscellaneous Medication (Phenylephrine Hcl In 0.9% Nacl 1 Mg/10 Ml Syringe) Confirm Administered Dose 1 mg .ROUTE .STK-MED ONE Stop: 07/05/21 11:09 Morphine Sulfate (Morphine Pf 10 Mg/10 Ml Sdv) Confirm Administered Dose 10 mg .ROUTE .STK-MED ONE Stop: 07/05/21 10:29 Ondansetron HCl (Ondansetron 4 Mg/2 Ml Sdv) Confirm Administered Dose 4 mg .ROUTE .STK-MED ONE Stop: 07/05/21 11:09 Oxytocin (Oxytocin 10 Units/1 Ml Sdv) Confirm Administered Dose 30 unit .ROUTE .STK-MED ONE Stop: 07/05/21 11:09 - Interaction Infant Disposition, : [place] in Room with Family Interaction: Holding Infant Infant Feeding: Bottle Fed Infant Support Person: Significant Other - Recovery Exam Fundal Tone: Firm Fundal Level: 2 Fingerbreadths Below Umbilicus Fundal Placement: Midline Lochia Amount: Scant Lochia Color: Rubra/Red Perineum Description: Intact, Minimal Bruising/Swelling Episiotomy/Laceration: None Bladder Status: Voiding Urinary Elimination: Voided - Exam General: Alert, Oriented Lungs: Clear to Auscultation, Normal Respiratory Effort Cardiovascular: Regular Rate, Regular Rhythm GI/Abdominal Exam: Soft, Non-Tender (Appropriately tender), No Organomegaly, No Distention, No Abnormal Bruit, No Mass Extremities: Normal Inspection Skin: Warm, Dry, Intact Wound/Incisions: Healing Well - Problem List Review Problem List Initiated/Reviewed/Updated: Yes - Assessment Assessment:: Pt is a 31 yo G5 now P5 female at 39w0d s/p scheduled primary low transverse section for breech presentation. POD#2. Pt healing well. - Plan Plan:: Pt Rh- and Rh-, Rhogam not given Antibody screen negative, Rubella immune, GBS negative PO pain medication ordered PRN Regular diet as tolerated Encourage ambulation Bottle feeding Dispo: plan for discharge today <Ernie Sheikh - Last Filed: 07/07/21 10:37> - General Info Subjective Update: Patient seen at bedside , she is ambulating , voiding and tolerating regular diet Normal lochia Functional Status: Reports: Tolerating Diet, Ambulating, Urinating - Patient Data Vital Signs - Most Recent: Last Vital Signs Temp 36.3 C 07/07/21 08:00 Pulse 65 07/07/21 08:00 Resp 16 07/07/21 08:00 BP 118/74 07/07/21 08:00 Pulse Ox 99 07/07/21 08:00 Med Orders - Current: Current Medications Bisacodyl (Bisacodyl 10 Mg Supp) 10 mg RECTAL ONETIME PRN PRN Reason: Constipation Diphenhydramine HCl (Diphenhydramine 50 Mg/Ml Sdv) 25 mg IVPUSH Q6H PRN PRN Reason: Itching or Nausea Docusate Sodium (Docusate Sodium 100 Mg Cap) 100 mg PO BID [facility] Last Admin: 07/06/21 20:02 Dose: 100 mg Documented by: Emollient Ointment (Lanolin 100% Cream 7 Gm Tube) 0 gm TOP ASDIRECTED PRN PRN Reason: Sore Nipples Oxytocin/Sodium Chloride (Oxytocin 30 Unit/500 Ml-Ns) 30 unit in 500 mls @ 250 mls/hr IV TITRATE [facility] Cefazolin Sodium/Dextrose 2 gm (/ Premix) 50 mls @ 100 mls/hr IV .ONCE [facility] Last Admin: 07/05/21 13:29 Dose: Not Given Documented by: Lactated Ringer's (Ringers, Lactated) 1,000 mls @ 500 mls/hr IV BOLUS [facility] Last Admin: 07/05/21 10:25 Dose: 500 mls/hr Documented by: Lactated Ringer's (Ringers, Lactated) 1,000 mls @ 125 mls/hr IV ASDIRECTED [facility] Last Admin: 07/05/21 16:18 Dose: 125 mls/hr Documented by: Oxytocin/Lactated Ringer's (Pitocin In Lr 30 Units/500 Ml) 30 unit in 500 mls @ 2 mls/hr IV TITRATE [facility]; Protocol Tranexamic Acid 1,000 mg/ (Sodium Chloride) 110 mls @ 660 mls/hr IV ONETIME PRN PRN Reason: Bleeding Ibuprofen (Ibuprofen 800 Mg Tab) 800 mg PO Q8H PRN PRN Reason: mild pain or fever Last Admin: 07/07/21 03:55 Dose: 800 mg Documented by: Methylergonovine Maleate (Methylergonovine 0.2 Mg/1 Ml Amp) 0.2 mg IM ONETIME PRN PRN Reason: Excessive Vaginal Bleeding Misoprostol (Misoprostol 200 Mcg Tab) 1,000 mcg RECTAL ONETIME PRN PRN Reason: excessive bleeding Ondansetron HCl (Ondansetron 4 Mg/2 Ml Sdv) 4 mg IVPUSH Q4H PRN PRN Reason: Nausea/Vomiting Oxycodone/Acetaminophen (Acetaminophen/Oxycodone 325-5 Mg Tab) 1 tab PO Q4H PRN PRN Reason: Pain (severe 7-10) Last Admin: 07/07/21 03:55 Dose: 1 tab Documented by: Oxycodone/Acetaminophen (Acetaminophen/Oxycodone 325-5 Mg Tab) 2 tab PO Q4H PRN PRN Reason: Pain (severe 7-10) Last Admin: 07/07/21 08:26 Dose: 2 tab Documented by: Oxytocin (Oxytocin 10 Units/1 Ml Sdv) 10 unit IM ASDIRECTED PRN PRN Reason: Excessive Vaginal Bleeding Sodium Chloride (Sodium Chloride 0.9% 10 Ml Syringe) 10 ml FLUSH ASDIRECTED PRN PRN Reason: Keep Vein Open Sodium Chloride (Sodium Chloride 0.9% 2.5 Ml Syringe) 2.5 ml FLUSH ASDIRECTED PRN PRN Reason: Keep Vein Open Sodium Chloride (Sodium Chloride 0.9% 10 Ml Sdv) 10 ml IV ASDIRECTED PRN PRN Reason: IV Use Discontinued Medications Cefazolin Sodium (Cefazolin 1 Gm Vial) Confirm Administered Dose 2 gm .ROUTE .[facility]-MED ONE Stop: 07/05/21 11:09 Citric Acid/Sodium Citrate (Citric Acid/Sodium Citrate Solution 30 Ml Cup) 30 ml PO ONETIME ONE Stop: 07/05/21 08:01 Last Admin: 07/05/21 20:43 Dose: Not Given Documented by: Fentanyl (Fentanyl 100 Mcg/2 Ml Sdv) Confirm Administered Dose 100 mcg .ROUTE .STK-MED ONE Stop: 07/05/21 10:29 Ketorolac Tromethamine (Ketorolac 30 Mg/Ml Sdv) Confirm Administered Dose 30 mg .ROUTE .STK-MED ONE Stop: 07/05/21 11:09 Ketorolac Tromethamine (Ketorolac 30 Mg/Ml Sdv) 30 mg IVPUSH Q6H WINTER Stop: 07/06/21 12:31 Last Admin: 07/06/21 12:06 Dose: 30 mg Documented by: Miscellaneous Medication (Phenylephrine Hcl In 0.9% Nacl 1 Mg/10 Ml Syringe) Confirm Administered Dose 1 mg .ROUTE .STK-MED ONE Stop: 07/05/21 11:09 Morphine Sulfate (Morphine Pf 10 Mg/10 Ml Sdv) Confirm Administered Dose 10 mg .ROUTE .STK-MED ONE Stop: 07/05/21 10:29 Ondansetron HCl (Ondansetron 4 Mg/2 Ml Sdv) Confirm Administered Dose 4 mg .ROUTE .STK-MED ONE Stop: 07/05/21 11:09 Oxytocin (Oxytocin 10 Units/1 Ml Sdv) Confirm Administered Dose 30 unit .ROUTE .STK-MED ONE Stop: 07/05/21 11:09 - Problem List & Annotations (1) delivery delivered SNOMED Code(s): 645642652 Code(s): O82 - ENCOUNTER FOR DELIVERY WITHOUT INDICATION Status: Acute Current Visit: Yes - Assessment Assessment:: Patient doing well postoperative - Plan Plan:: Discharge home today
[2021-07-07 09:12] VITALS: BP 118/74
[2021-07-07] MEDS: Docusate Sodium 100 MG Cap PO SCH (12:13)
== END 2021-07-07 14:45 | disposition home or self-care (01) | DRG 540 ==
LOC: MW.OB 07:43
PROVIDERS: ADMIT Obstetrics & Gynecology; ATTEND Obstetrics & Gynecology
PROC: 10D00Z1 Extraction of Products of Conception, Low, Open Approach (ICD-10-PCS; principal; 2021-07-05)
DX: O32.1XX0 Maternal care for breech presentation, not applicable or unspecified (principal); Z3A.39 39 weeks gestation of pregnancy; Z37.0 Single live birth; Z20.822 Contact with and (suspected) exposure to COVID-19
CPT/HCPCS: 01961; 36415; 59025; 85014; 85018; 85027; 86592; 86850; 86900; 86901; A9270-GY; J0690; J1885; J2270; J2370; J2405; J2590; J3010; J7120; U0002